=== PATIENT | female | born 1970 | race African-American/Black ===

== ENCOUNTER 2017-03-18 07:00 | Emergency (ER) | payer OTHER ==
[~2017-03-18] VITALS: Ht 170.2 cm; Wt 132.9 kg
--- NOTE | 2017-03-18 07:15 | NUR ---
PT AMBULATED TO BED 3 AT THIS TIME.
[2017-03-18 07:18] VITALS: BP 147/98
--- NOTE | 2017-03-18 07:20 | NUR ---
47F BIB FAMIILY C/O LEFT LEG PAIN, SHARP/BURNING, NON-RADIATING, 08/09 X 3 DAYS; PT DENIES FALL, TRAUMA OR INJURY TO SITE AT THIS TIME; LEFT FOOT CAP REFILL < 3 SECONDS, LEFT PEDAL PULSE PALPABLE, NO LOSS OF SENSATION TO LEFT LEG AT THIS TIME; NO SWELLING NOTED AT THIS TIME; PT A&OX4, PERRL, BL LUNG SOUNDS CLEAR, RR EVEN/UNLABORED, SKIN IS WARM/DRY/INTACT AT THIS TIME; PT DENIES N/V/D AT THIS TIME; PT RESTING IN BED W/ HOB ELEVATED AND IN LOWEST POSITION; POSITIONED FOR COMFORT; ER MD MADE AWARE OF STATUS. WILL CONTINUE TO MONITOR.
--- NOTE | 2017-03-18 07:27 | NUR ---
Shae glass in EDM - 03/18/17 at 0727 by MEDCARISSA DAJUAN THAKKAR EVALUATING PT AT BEDSIDE.
--- NOTE | 2017-03-18 07:27 | NUR ---
Dr. Ricks evaluaitng patient at bedside.
[2017-03-18] MEDS ORDERED: KETOROLAC 60 MG/2 ML VIAL IM ONE ×2 (07:35→07:43)
[2017-03-18 08:03] VITALS: BP 144/98
--- NOTE | 2017-03-18 08:03 | NUR ---
Patient discharged with v/s stable. Written and verbal after care instructions given and explained. Patient alert, oriented and verbalized understanding of instructions. Ambulatory with steady gait. All questions addressed prior to discharge. ID band removed. Patient advised to follow up with PMD. Rx of NORCO 5MG-325MG TAB & MOTRIN 800MG TAB given. Patient educated on indication of medication including possible reaction and side effects. Opportunity to ask questions provided and answered.
== END 2017-03-18 08:03 | disposition home or self-care (01) ==
LOC: MED 07:00
DX: M79.662 Pain in left lower leg (principal); I10 Essential (primary) hypertension
CPT/HCPCS: 96372; 99283; J1885

== ENCOUNTER 2017-03-23 09:06 | Emergency (ER) | payer OTHER ==
[~2017-03-23] VITALS: Ht 170.2 cm; Wt 132.9 kg
[2017-03-23 10:00] VITALS: BP 143/96
== END 2017-03-23 10:45 | disposition left against medical advice (07) ==
LOC: MED 09:06
DX: M79.605 Pain in left leg (principal); Z53.21 Procedure and treatment not carried out due to patient leaving prior to being seen by health care provider

== ENCOUNTER 2017-10-28 11:47 | Emergency (ER) | payer OTHER ==
[~2017-10-28] VITALS: Ht 170.2 cm; Wt 134.7 kg
[2017-10-28 11:56] VITALS: BP 151/95
[2017-10-28] MEDS: diphenhydrAMINE 50 MG/ML VIAL IM ONE (13:34)
[2017-10-28] MEDS: HYDROmorphone PFS 2 MG/ML SYR IM ONE (13:35)
[2017-10-28 13:43] LABS: BASOPHILS # (AUTO) 0.3 K/uL (0.00-0.22); BASOPHILS % (AUTO) 3.5 % (0.0-2.0); EOSINOPHILS # (AUTO) 0.2 K/uL (0-0.4); EOSINOPHILS % (AUTO) 2.4 % (0.0-4.0); HEMOGLOBIN 10.7 g/dL (12.0-16.0); LYMPHOCYTES % (AUTO) 27.3 % (20.5-51.1); MEAN CORPUSCULAR HEMOGLOBIN 22 pg (27-31); MEAN CORPUSCULAR HGB CONC 31 g/dL (33-37); MEAN CORPUSCULAR VOLUME 70 fL (80-94); MONOCYTES # (AUTO) 0.5 K/uL (0.8-1.0); NEUTROPHILS # (AUTO) 4.2 K/uL (1.8-7.7); NEUTROPHILS % (AUTO) 59.8 % (42.2-75.2); PLATELET COUNT (AUTO) 257 K/uL (140-450); RED BLOOD CELL COUNT(AUTO) 4.87 MIL/uL (4.20-5.40); RED CELL DISTRIBUTION WIDTH 17.6 % (11.6-13.7); WHITE BLOOD COUNT (AUTO) 7.2 K/uL (4.8-10.8)
[2017-10-28 13:49] LABS: ANION GAP 11.7 (8-16); CARBON DIOXIDE 29.6 mmol/L (21-32); CREATININE 0.9 mg/dL (0.6-1.3); POTASSIUM 3.3 mmol/L (3.5-5.1)
[2017-10-28 13:54] LABS: PROTHROMBIN TIME 10.4 secs (10.8-13.4)
[2017-10-28 13:57] LABS: ALBUMIN 3.9 g/dL (3.4-5.0); TOTAL BILIRUBIN 0.5 mg/dL (0.0-1.0)
[2017-10-28 15:54] VITALS: BP 144/76
== END 2017-10-28 15:54 | disposition home or self-care (01) ==
LOC: MED 11:47
DX: R25.2 Cramp and spasm (principal); I10 Essential (primary) hypertension; M54.30 Sciatica, unspecified side
CPT/HCPCS: 36415; 71010; 73590; 80053; 82550; 84484; 85025; 85379; 85610; 85730; 93971; 96372; 99285; J1170; J1200

== ENCOUNTER 2018-02-21 07:25 | Emergency (ER) | payer OTHER ==
[~2018-02-21] VITALS: Ht 170.2 cm; Wt 131.1 kg
[2018-02-21 07:30] VITALS: BP 154/99
--- NOTE | 2018-02-21 07:36 | NUR ---
pt to rm 11 with steady gait.
--- NOTE | 2018-02-21 07:38 | NUR ---
48 YO BIB SELF W/ C/O TOOTHEACHE ON HER LEFT SIDE THAT IS CAUSING DIFFICULTY SWALLOWING, HEAD PAIN, AND LEFT SIDED EARACHE. PT REPORTS THAT SHE IS TO GET HER WISDOM TEETH PULLED, BUT THERE IS NERVE CONNECTIONS SO SHE IS WAITING TO SEE A SPECIALIST ON THE . A&O X 4. PAIN 09/08.GCS 15. PT AMBULATORY W/STEADY GAIT. REPIRATIONS EVEN AND UNLABORED. ER MD DALIEY NOTIFIED. SAFETY PRECAUTIONS IN PLACE. PT NEEDS MET AT THIS TIME. WILL CONTINUE TO MONITOR.
[2018-02-21] MEDS ORDERED: KETOROLAC 30 MG/ML VIAL IM ONE (07:55)
[2018-02-21] MEDS ORDERED: MORPHINE SULFATE 4 MG/ML SYR IM ONE (07:55)
--- NOTE | 2018-02-21 08:25 | NUR ---
Patient discharged with v/s stable. Written and verbal after care instructions given and explained. Patient verbalized understanding. Ambulatory with steady gait. All questions addressed prior to discharge. Advised to follow up with PMD.
[2018-02-21 08:27] VITALS: BP 148/84
== END 2018-02-21 08:25 | disposition home or self-care (01) ==
LOC: MED 07:25
DX: K02.9 Dental caries, unspecified (principal); K04.7 Periapical abscess without sinus; I10 Essential (primary) hypertension
CPT/HCPCS: 96372; 99284; J1885; J2270

== ENCOUNTER 2020-09-07 08:49 | Emergency (ER) | payer OTHER ==
[~2020-09-07] VITALS: Ht 170.2 cm; Wt 136.1 kg
[2020-09-07 08:59] VITALS: BP 173/94
[2020-09-07] MEDS ORDERED: NACL 0.9% 1,000 ML IV SCH (09:06)
[2020-09-07] MEDS ORDERED: LIDOCAINE VISCOUS 2% 20 ML UDC PO ONE (09:10)
[2020-09-07] MEDS ORDERED: ALUMINUM HYD/MAG/SIMETHICONE 30 ML UDC PO ONE (09:10)
[2020-09-07] MEDS ORDERED: FAMOTIDINE 20 MG TAB PO ONE (09:10)
[2020-09-07] MEDS ORDERED: DICYCLOMINE 10 MG CAP PO ONE (09:10)
[2020-09-07] MEDS ORDERED: HYDROcodone/APAP 10/325 MG 1 TAB TAB PO ONE (09:50)
[2020-09-07 09:52] LABS: BASOPHILS # (AUTO) 0.1 K/uL (0.00-0.22); BASOPHILS % (AUTO) 0.6 % (0.0-2.0); EOSINOPHILS % (AUTO) 0.2 % (0.0-4.0); HEMATOCRIT 40.9 % (36-48); HEMOGLOBIN 13.1 g/dL (12.0-16.0); LYMPHOCYTES # (AUTO) 1.1 K/uL (2.5-16.5); LYMPHOCYTES % (AUTO) 9.2 % (20.5-51.1); MEAN CORPUSCULAR HEMOGLOBIN 26 pg (27-31); MEAN CORPUSCULAR HGB CONC 32 g/dL (33-37); MEAN CORPUSCULAR VOLUME 81.1 fL (80-94); MONOCYTES # (AUTO) 0.5 K/uL (0.8-1.0); MONOCYTES % (AUTO) 3.8 % (1.7-9.3); NEUTROPHILS # (AUTO) 10.3 K/uL (1.8-7.7); NEUTROPHILS % (AUTO) 86.2 % (42.2-75.2); PLATELET COUNT (AUTO) 273 K/uL (140-450); RED BLOOD CELL COUNT(AUTO) 5.04 MIL/uL (4.20-5.40); RED CELL DISTRIBUTION WIDTH 15.1 % (11.6-13.7); WHITE BLOOD COUNT (AUTO) 11.9 K/uL (4.8-10.8)
[2020-09-07 10:11] LABS: ANION GAP 12.6 (8-16); CARBON DIOXIDE 27.9 mmol/L (21-32); CREATININE 0.9 mg/dL (0.6-1.3); POTASSIUM 3.5 mmol/L (3.5-5.1); TOTAL BILIRUBIN 0.5 mg/dL (0.0-1.0)
[2020-09-07 10:39] LABS: APPEARANCE,URINE CLEAR (CLEAR); BILIRUBIN,URINE NEGATIVE (NEGATIVE); BLOOD, URINE TRACE-I (NEGATIVE); COLOR,URINE YELLOW (YELLOW); LEUKOCYTE ESTERASE ,URINE NEGATIVE (NEGATIVE); NITRITE, URINE NEGATIVE (NEGATIVE); PH,URINE 8.5 (5.0-9.0); UGLUCOSE NEGATIVE (NEGATIVE)
[2020-09-07 11:03] LABS: RBC,URINE 0-5 /HPF (0-5); WBC,URINE 0-5 /HPF (0-5)
[2020-09-07 11:36] VITALS: BP 125/74
== END 2020-09-07 11:36 | disposition home or self-care (01) ==
LOC: MED 08:49
DX: B34.9 Viral infection, unspecified (principal); K52.89 Other specified noninfective gastroenteritis and colitis; K52.9 Noninfective gastroenteritis and colitis, unspecified; D36.7 Benign neoplasm of other specified sites; M13.88 Other specified arthritis, other site
CPT/HCPCS: 36415; 71045; 80053; 81001; 81025; 83690; 84484; 84703; 85025; 93005; 96360; 96361; 99285; J7030

== ENCOUNTER 2021-07-17 21:20 | Emergency (ER) | payer OTHER ==
[~2021-07-17] VITALS: Ht 170.2 cm; Wt 133.8 kg
[2021-07-17 21:30] VITALS: BP 142/83
--- NOTE | 2021-07-17 21:33 | NUR ---
TO LOBBY A/W BED AMBULATORY
--- NOTE | 2021-07-17 22:14 | NUR ---
TO ER BED 3
--- NOTE | 2021-07-17 22:18 | NUR ---
51 YO F BIB SELF FOR L ARM L U CHEST PAIN, 6/10, C/O TINGLING SENSATION. X 1 DAY. PT AAOX4, AMB WITH STEADY GAIT TO [facility]. DENIES SOB @ THIS TIME. PT DENIES TRAUMA. SKIN INTACT. CHEPE LOCKED IN LOWEST POSITION WILL UPDATE ERMD HX: HTN, SCIATIC PAIN MED: HCTZ, HYDRALAZINE, CLONDINE PATCH. LMP:MAY 30
[2021-07-17] MEDS ORDERED: ASPIRIN 325 MG TAB PO ONE (23:10)
[2021-07-17] MEDS ORDERED: ACETAMINOPHEN EXTRA STRENGTH 500 MG TAB PO ONE (23:15)
[2021-07-17 23:26] LABS: BASOPHILS % (AUTO) 0.2 % (0.0-2.0); EOSINOPHILS # (AUTO) 0.2 K/uL (0-0.4); EOSINOPHILS % (AUTO) 2.2 % (0.0-4.0); HEMATOCRIT 38.9 % (36-48); HEMOGLOBIN 12.5 g/dL (12.0-16.0); LYMPHOCYTES # (AUTO) 2.6 K/uL (2.5-16.5); LYMPHOCYTES % (AUTO) 31.7 % (20.5-51.1); MEAN CORPUSCULAR HEMOGLOBIN 26 pg (27-31); MEAN CORPUSCULAR HGB CONC 32 g/dL (33-37); MEAN CORPUSCULAR VOLUME 81.1 fL (80-94); MONOCYTES # (AUTO) 0.5 K/uL (0.8-1.0); MONOCYTES % (AUTO) 5.9 % (1.7-9.3); NEUTROPHILS # (AUTO) 4.9 K/uL (1.8-7.7); PLATELET COUNT (AUTO) 249 K/uL (140-450); RED CELL DISTRIBUTION WIDTH 16.6 % (11.6-13.7); WHITE BLOOD COUNT (AUTO) 8.1 K/uL (4.8-10.8)
[2021-07-17 23:43] LABS: ALBUMIN 3.8 g/dL (3.4-5.0); ANION GAP 7.7 (8-16); CARBON DIOXIDE 33.1 mmol/L (21-32); TOTAL BILIRUBIN 0.3 mg/dL (0.0-1.0)
[2021-07-17 23:46] LABS: POTASSIUM 2.8 mmol/L (3.5-5.1)
[2021-07-18] MEDS ORDERED: POTASSIUM CHLORIDE 10 MEQ TABER PO ONE (00:10)
--- NOTE | 2021-07-18 00:45 | NUR ---
PT SITTING UP IN BED, AROUSABLE DENIES PAIN @ THIS TIME
--- NOTE | 2021-07-18 03:05 | NUR ---
PT HAS EYES CLOSED; DENIES PAIN @ THIS TIME. VSS. WILL CONTINUE TO OBSERVE
[2021-07-18] MEDS ORDERED: POTA20TE92 PO (03:20)
--- NOTE | 2021-07-18 03:45 | NUR ---
Patient discharged with v/s stable. Written and verbal after care instructions given and explained. Patient verbalized understanding. Ambulatory with steady gait. RX OF k+ supplement given. All questions addressed prior to discharge. Advised to follow up with PMD.
[2021-07-18 04:19] VITALS: BP 115/65
== END 2021-07-18 03:45 | disposition home or self-care (01) ==
LOC: MED 21:20
DX: R07.89 Other chest pain (principal); R20.2 Paresthesia of skin; E87.6 Hypokalemia; M25.532 Pain in left wrist; I10 Essential (primary) hypertension
CPT/HCPCS: 36415; 71045; 80053; 84484; 85025; 99285

== ENCOUNTER 2022-09-12 18:40 | Emergency (ER) | payer OTHER ==
[~2022-09-12] VITALS: Ht 170.2 cm; Wt 138.8 kg
[~2022-09-12 18:40] MED LIST: POTA20TA49 PO
[2022-09-12 18:45] VITALS: BP 133/79
--- NOTE | 2022-09-12 18:48 | NUR ---
pt ambulated to bed 12
--- NOTE | 2022-09-12 18:49 | NUR ---
52 Y/O FEMALE BIB SELF C/O LEFT HAND PAIN S/P FALL IN SHOWER AT 11AM TODAY. DENIES LOC, DENIES HITTING HEAD, PER PT SHE "TRIED TO BREAK MY FALL WITH MY HAND" PAIN IS NOTED ON THE PALPATION AND MOVEMENT, NO PAIN ON THE 1ST-2ND DIGIT. RESEARCH DIRECTOR LESS THAN 3 SECONDS. pmh: htn, SCIATICA nka med: denies
[2022-09-12] MEDS ORDERED: KETOROLAC 60 MG/2 ML VIAL IM ONE (19:15)
--- NOTE | 2022-09-12 19:19 | NUR ---
Pt report given to ANGELINA SARGENT. Transfer of care at this time.
--- NOTE | 2022-09-12 19:45 | NUR ---
Pt retuned from X-Ray and is in bed resting with mild distress on left hand 6/10 pain non-radiating. Pt is A&Ox4. Skin intact. VSS. Bed in lowest position.
[2022-09-12] MEDS ORDERED: ACET-10509 PO (20:03)
[2022-09-12] MEDS ORDERED: IBUP-2213 PO (20:03)
--- NOTE | 2022-09-12 21:28 | NUR ---
Ulnar gutter splint placed to left arm. Sensation in left extremity intact. Cap refill < 3 seconds. Pt has no c/o.
[2022-09-12 21:39] VITALS: BP 138/77
== END 2022-09-12 21:38 | disposition home or self-care (01) ==
LOC: MED 18:40
DX: S62.325A Displaced fracture of shaft of fourth metacarpal bone, left hand, initial encounter for closed fracture (principal); S63.502A Unspecified sprain of left wrist, initial encounter; S30.0XXA Contusion of lower back and pelvis, initial encounter; I10 Essential (primary) hypertension; Z79.899 Other long term (current) drug therapy; Z72.89 Other problems related to lifestyle; W18.30XA Fall on same level, unspecified, initial encounter; Y93.89 Activity, other specified; Y92.89 Other specified places as the place of occurrence of the external cause; Y99.8 Other external cause status
CPT/HCPCS: 29125; 72220; 73080; 73110; 73130; 96372; 99284; J1885

== ENCOUNTER 2023-10-15 14:33 | Emergency (ER) | payer OTHER ==
[~2023-10-15] VITALS: Ht 167.6 cm; Wt 113.4 kg
[~2023-10-15 14:33] MED LIST changes: +ACET-10509 PO; +IBUP-2213 PO
[2023-10-15 15:07] VITALS: BP 137/89; PULSE 92; RESP 18; TEMP 98.1; O2SAT 98
== END 2023-10-15 15:46 | disposition home or self-care (01) ==
LOC: MED 14:33
DX: R22.1 Localized swelling, mass and lump, neck (principal); L98.9 Disorder of the skin and subcutaneous tissue, unspecified; I10 Essential (primary) hypertension; Z79.899 Other long term (current) drug therapy; Z79.1 Long term (current) use of non-steroidal anti-inflammatories (NSAID)
CPT/HCPCS: 99281